=== PATIENT | female | born 1945 | race Two or more races ===

== ENCOUNTER 2023-06-28 15:54 | Emergency (ER) | payer OTHER ==
[~2023-06-28] VITALS: Ht 157.5 cm; Wt 54.8 kg
[~2023-06-28 15:54] MED LIST: SIMV40TA18 PO
[2023-06-28 20:08] VITALS: BP 133/72; PULSE 90; RESP 16; TEMP 98.6; O2SAT 97
== END 2023-06-28 20:36 | disposition home or self-care (01) ==
LOC: ER 15:54
DX: S00.83XA Contusion of other part of head, initial encounter (principal); I10 Essential (primary) hypertension; E78.5 Hyperlipidemia, unspecified; Z90.710 Acquired absence of both cervix and uterus; W01.0XXA Fall on same level from slipping, tripping and stumbling without subsequent striking against object, initial encounter; Y93.89 Activity, other specified; Y92.009 Unspecified place in unspecified non-institutional (private) residence as the place of occurrence of the external cause; Y99.8 Other external cause status
CPT/HCPCS: 70450

== ENCOUNTER 2024-07-31 16:41 | Inpatient (IN) | payer OTHER ==
[~2024-07-31] VITALS: Ht 162.6 cm; Wt 68.3 kg
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
[2024-07-31 18:09] LABS: Basophils # (auto) 0.1 10 ^3/uL (0-0.2); Basophils % (auto) 0.8 % (0.0-2.0); Eosinophils # (auto) 0.1 10 ^3/uL (0-0.8); Eosinophils % (auto) 1.3 % (0.0-7.0); Hematocrit 36.7 % (36.0-46.0); Hemoglobin 12.2 g/dL (12.2-16.2); Lymphocytes # (auto) 2.1 10 ^3/uL (0.4-5.4); Lymphocytes % (auto) 18.9 % (10.0-50.0); Mean Corpuscular Hemoglobin 32.2 pg (28.0-32.0); Mean Corpuscular Hgb Conc. 33.3 g/dL (32.0-36.0); Mean Corpuscular Volume 96.9 fL (80.0-100.0); Monocytes % (auto) 8.6 % (0.0-12.0); Neutrophils # (auto) 7.9 10 ^3/uL (1.6-8.6); Neutrophils % (auto) 70.4 % (37.0-80.0); Nucleated Red Blood Cells % 0.1 %; Platelet Count (auto) 354 10^3/uL (140-450); Red Blood Cells 3.79 10^6/uL (4.0-5.20); Red Cell Distribution Width 14.4 % (11.8-14.3); White Blood Cell 11.2 10^3/uL (4.4-10.8)
[2024-07-31 18:25] LABS: Chloride 107 mmol/L (98-107); Potassium 4.1 mmol/L (3.5-5.1); Sodium 142 mmol/L (136-145)
[2024-07-31 18:26] LABS: Anion Gap 9 (5-15); Calcium 9.3 mg/dL (8.7-10.4); Carbon Dioxide 26 mmol/L (20-31)
[2024-07-31 18:31] LABS: BUN/Creatinine Ratio 21.4 (10.0-20.0); Blood Urea Nitrogen 12 mg/dL (9-23); Glucose 89 mg/dL (74-106)
--- NOTE | 2024-07-31 20:23 | DVH ---
CT BRAIN WITHOUT CONTRAST HISTORY: aloc TECHNIQUE: Axial scans were obtained from the skull base through the vertex without contrast. Sagitta l and coronal reformats were generated. One or more of the following radiation dose reduction techniq ues were used for this examination: automated exposure control, adjustment of the mA and/or kV accord ing to patient size, use of iterative reconstruction technique. COMPARISON: CT HEAD WITHOUT CONTRAST on DOS: 06/28/23 FINDINGS: Moderate generalized cerebral atrophy. Chronic appearing periventricular and subcortical white matter changes are nonspecific but may be sequelae of microangiopathy. No acute intracranial hemorrhage or evidence of large vessel territorial infarction identified at thi s time. No midline shift. The basilar cisterns are patent. The visualized paranasal sinuses and mastoid air cells are clear. No grossly displaced calvarial abno rmalities identified. IMPRESSION: No acute intracranial findings. If there is persistent clinical concern, follow-up MRI may be conside red to further evaluate.
[2024-07-31] MEDS: SODIUM CHLORIDE 0.9% 1,000 ML IVB ONE (20:30)
[2024-07-31 20:37] VITALS: BP 155/86; PULSE 82; RESP 18; TEMP 98.1; O2SAT 97
[2024-07-31 22:54] LABS: Urine Bacteria None Seen /hpf (None Seen)
[2024-07-31 23:11] LABS: Urine Blood Negative /uL (Negative); Urine Clarity Clear (Clear); Urine Color Light-Yellow (Yellow); Urine Protein, UAD Negative (Negative); Urine Specific Gravity 1.014 (1.001-1.035); Urine Squamous Epithelial Cell FEW /hpf (<5); Urine Urobilinogen Normal (Negative); Urine WBC 10 /HPF (0-5); Urine pH 5.5 (5.0-9.0)
[2024-07-31] MEDS ORDERED: IBUPROFEN 400 MG TAB PO PRN (23:30)
[2024-07-31] MEDS ORDERED: LORazepam 2MG/ML-1ML VIAL IV PRN (23:30)
[2024-07-31] MEDS ORDERED: HYDROcodone-ACET 5/325MG TAB PO PRN (23:30)
[2024-07-31 23:43] LABS: Amphetamine Screen, Urine Neg (NEGATIVE); Barbiturate Scree,Urine Neg (NEGATIVE); Benzodiazephine Screen, Urine Neg (NEGATIVE); Cannabinoid Screen, Urine Neg (NEGATIVE); Cocaine Screen, Urine Neg (NEGATIVE); Opiate Scree,Urine Neg (NEGATIVE); Phencyclidine Screen, Urine Neg (NEGATIVE)
[2024-07-31] MEDS: IBUPROFEN 400 MG TAB PO ONE (23:58)
[2024-07-31] MEDS: LOSARTAN POTASSIUM 25 MG TAB PO ONE (23:58)
--- NOTE | 2024-08-01 00:54 | DVH ---
CHEST RADIOGRAPH Indication: SOB Technique: Single frontal view of the chest was obtained COMPARISON: None FINDINGS: Lines and Tubes: None Lungs: Clear Pleura: No effusion. No pneumothorax. Cardiomediastinal contours: Unremarkable Bones: Unremarkable IMPRESSION: 1. No acute disease.
--- NOTE | 2024-08-01 01:52 | DVH ---
EXAM: CT THORACIC SPINE WO CONTRAS HISTORY: midline thoracic spine pain COMPARISON: None CTDIvol 8.74 mGy, DLP 362.55 mGy*cm. TECHNIQUE: Multiple axial CT images of the spine were obtained using bone algorithm. Axial and coron al reformatting was done. Bone and soft tissue windows were reviewed. FINDINGS: Partially healed subacute appearing nondisplaced fracture of the medial posterior right 9th rib adjac ent to the costovertebral junction. Mild exaggeration of kyphosis about the T7-T8 interspace with chronic appearing compression fracture deformities of the T7 through T9 vertebral bodies resulting in less than 25% anterior height loss at each level. Moderate multilevel degenerative change throughout the thoracic spine include multilevel anterior ost eophytosis with fsdw-fi-ybyxczim disc height loss. No CT evidence of definite acute spinal fracture, spinal dislocation, or significant appearing acute subluxation is seen. The visualized paraspinal soft tissues are grossly unremarkable. Atherosclerotic vascular calcifications. IMPRESSION: 1. Partially healed subacute appearing nondisplaced fracture of the medial posterior right 9th rib ad jacent to the costovertebral junction. 2. Exaggeration of kyphosis about the T7-T8 interspace with chronic appearing compression fracture de formities of the T7 through T9 vertebral bodies resulting in less than 25% anterior height loss at ea ch level. 3. No definite CT evidence of acute fracture or dislocation of the bony thoracic spine.
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
[2024-08-01] MEDS ORDERED: ERGOCALCIFEROL 50,000 UNIT(1.25MG) CAP PO SCH (08:00)
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
[2024-08-01] MEDS ORDERED: FAMOTIDINE 20 MG TAB PO SCH (10:00)
[2024-08-01] MEDS ORDERED: LOSARTAN POTASSIUM 25 MG TAB PO SCH ×2 (10:00)
[2024-08-01] MEDS ORDERED: ATORVASTATIN 20 MG TAB PO SCH (22:00)
== END 2024-08-01 03:42 | disposition left against medical advice (07) | DRG 552 ==
LOC: EDUNIT# 16:41 → EDSEX 16:41 → ER 16:41 → EDBD 16:41 → OVERFLOW 23:22
PROVIDERS: ATTEND Emergency Medicine
DX: S22.079A Unspecified fracture of T9-T10 vertebra, initial encounter for closed fracture (principal); S22.31XA Fracture of one rib, right side, initial encounter for closed fracture; M81.0 Age-related osteoporosis without current pathological fracture; E11.9 Type 2 diabetes mellitus without complications; M54.50 Low back pain, unspecified; E78.5 Hyperlipidemia, unspecified; I10 Essential (primary) hypertension; S00.83XA Contusion of other part of head, initial encounter; Z53.29 Procedure and treatment not carried out because of patient's decision for other reasons; F10.129 Alcohol abuse with intoxication, unspecified; Y90.9 Presence of alcohol in blood, level not specified; W18.39XA Other fall on same level, initial encounter; Z90.710 Acquired absence of both cervix and uterus; Z79.899 Other long term (current) drug therapy; Z98.891 History of uterine scar from previous surgery; Y93.89 Activity, other specified; Y92.89 Other specified places as the place of occurrence of the external cause; Y99.8 Other external cause status
CPT/HCPCS: 36415; 70450; 71045; 72128; 80048; 80307; 80320; 81001; 85025; 96360; 99291; G0378